=== PATIENT | male | born 1940 | race Caucasian/White ===

== ENCOUNTER 2023-09-25 11:47 | Emergency (ER) | payer OTHER ==
[~2023-09-25] VITALS: Ht 180.3 cm; Wt 67.1 kg
[2023-09-25 11:59] VITALS: BP 184/105; PULSE 73; RESP 16
[2023-09-25] MEDS ORDERED: CLIN-141 PO (14:09)
== END 2023-09-25 14:17 | disposition home or self-care (01) ==
LOC: EDH 11:47
DX: L02.11 Cutaneous abscess of neck (principal); E78.00 Pure hypercholesterolemia, unspecified

== ENCOUNTER 2024-05-24 11:09 | Emergency (ER) | payer OTHER ==
[~2024-05-24] VITALS: Ht 180.3 cm; Wt 64.4 kg
[~2024-05-24 11:09] MED LIST: CLIN-141 PO
--- NOTE | 2024-05-24 11:21 | ERN ---
ED Note History of Present Illness Stated Complaint: REQ CT SCAN Chief Complaint: Headache Time Seen by MD: 11:18 Dictation: PATIENT IS AN 83-YEAR-OLD MALE HERE WITH HIS FROM A LOCAL URGENT CARE WITH COMPLAINTS OF AN INTERMITTENT RIGHT RETRO-ORBITAL AND TEMPORAL HEADACHE HE HAS HAD OFF AND ON FOR 10 DAYS. NO FEVER NO CHILLS, NIH IS 0. HE HAS ALREADY BEEN SEEN TWICE AT TWO URGENT CARES THE 1ST TIME WAS TREATED WITH A TRIPTAN STATES IT DOES HELP WITH THE PAIN DOES NOT RELIEVE IT. THIS MORNING, HE RECEIVED TORADOL 60 AND DECADRON 10 IM AND THEN WAS REFERRED TO THE EMERGENCY ROOM FOR FURTHER EVALUATION AND TREATMENT TO INCLUDE A CT SCAN. HE HAS NO SINUS TENDERNESS IN THE TRIAGE ROOM, NO COMPLAINTS OF VISION CHANGES. Allergies: Coded Allergies: No Known Allergies (Unverified Allergy, Unknown, 09/25/23) Home Meds Active Scripts Butalb/Acetaminophen/Caffeine (Esgic 50-325-40 mg Tablet) 50 Mg-325 Mg-40 Mg Tablet, 2 TAB PO Q4H for TAKE, #30 TAB 0 Refills TWO TABLETS BY MOUTH Q.4 HOURS P.R.N. HEADACHE, MAXIMUM SIX TABLETS IN 24 HOURS Prov:PARKER YOUNG NP 05/24/24 Clindamycin HCl (Clindamycin HCl) 300 Mg Capsule, 300 MG PO QID for 5 Days, #20 CAP Prov:GENA BARDALES MD 09/25/23 Past Medical History Past Medical History: High Cholesterol, Sinusitis Surgical History: None RN Note Reviewed/Agreed w/PFSH: Yes Review of System Dictation CONSTITUTIONAL: NEGATIVE EXCEPT FOR HPI HEAD/FACE: NEGATIVE EXCEPT FOR HPI EENT: NEGATIVE EXCEPT FOR HPI RESPIRATORY: NEGATIVE EXCEPT FOR HPI GASTROINTESTINAL/ABDOMINAL: NEGATIVE EXCEPT FOR HPI GENITOURINARY: NEGATIVE EXCEPT FOR HPI MUSCULOSKELETAL: NEGATIVE EXCEPT FOR HPI INTEGUMENTARY: NEGATIVE EXCEPT FOR HPI NEUROLOGICAL/PSYCH: NEGATIVE EXCEPT FOR HPI HEADACHE HEMATOLOGIC/LYMPHATIC: NEGATIVE EXCEPT FOR HPI ALL SYSTEMS NEGATIVE, EXCEPT NOTED ABOVE. 13 POINT REVIEW OF SYSTEMS ASSESSED AND ALL NEGATIVE EXCEPT FOR ABOVE. Initial Vital Sign VS Vital Signs Date Time Temp Pulse Resp B/P (MAP) Pulse Ox O2 Delivery O2 Flow Rate FiO2 05/24/24 11:14 97.9 71 16 158/91 97 Room Air 0 05/24/24 11:19 21 Physical Exam Dictation VITAL SIGNS REVIEWED GENERAL APPEARANCE: ALERT, ORIENTED X 3, MILD ACUTE DISTRESS, WELL DEVELOPED, NOURISHED. HEAD AND FACE: NON-TRAUMATIC. NO SINUS TENDERNESS ON PALPATION EYES: PERRL, PINK CONJUNCTIVAS, EYELID NO TRAUMA, ANTERIOR CHAMBER WITH ARCUS SENILIS. EOMS INTACT EARS: PINNAS INTACT AND NO SIGNS OF TRAUMA OR ERYTHEMA EAR CANALS CLEAR AND NO DISCHARGE TM NO ERYTHEMA NOSE: NO DISCHARGE, NO BLEEDING. OROPHARYNX: MOUTH NORMAL, TONGUE PINK, PHARYNX CLEAR,NO ERYTHEMA, TONSILS NO EXUDATES, NO ABSCESSES NOTED, MUCOUS MEMBRANE MOIST NECK: SUPPLE, NON-TENDER, NO THYROMEGALY, NO MASSES, NO JVD, NO BRUITS BREAST:DEFERRED CHEST:NO TENDERNESS, NO CREPITUS, NO PARADOXICAL MOVEMENT, NO RETRACTIONS LUNGS:CLEAR, WELL-VENTILATED, SYMMETRIC, NO RALES, NO WHEEZING, NO RHONCHI, NO STRIDOR, GOOD BREATH SOUNDS BILATERALLY HEART: REGULAR RATE, REGULAR RHYTHM, NO MURMUR, NO GALLOPS VASCULAR: NO PERIPHERAL EDEMA, ABDOMEN: SOFT, POSITIVE BOWEL SOUNDS, NONDISTENDED, NO GUARDING, NONTENDER, NO REBOUND, NO MASSES NO HEPATOMEGALY, NO SPLENOMEGALY, NO ALCANTARA'S SIGN, NO HERNIAS. RECTAL: DEFERRED GENITAL: DEFERRED NEUROLOGICAL: NORMAL SPEECH, MOTOR FUNCTION INTACT, SENSORY FUNCTION INTACT NIH IS 0 MUSCULOSKELETAL: NECK NONTENDER, FULL RANGE OF MOTION, BACK NONTENDER, FULL RANGE OF MOTION, EXTREMITIES: NONTENDER, FULL RANGE OF MOTION SKIN: COLOR PINK, DRY, NO TURGOR, NO RASH, NO LACERATIONS, NO ABRASIONS, NO CONTUSIONS. LYMPHATIC: DEFERRED Results (Laboratory/Radiology) Laboratory/Radiology REASON: INTERMITTENT RIGHT RETRO-ORBITAL AND TEMPORAL HEADACHE 10 DAYS NEURO INTACT. COMPARISON: None. TECHNIQUE: Images are obtained from vertex to the skull base. The exam was performed without IV contrast. FINDINGS: There is normal appearing brain parenchyma. There are no focal mass lesions. There is is no evidence of intracranial hemorrhage or acute stroke. Ventricles and sulci appear normal. Posterior fossa and brainstem structures are unremarkable. Paranasal sinuses and remaining extracranial soft tissues appear normal as well. IMPRESSION: 1. Normal noncontrast CT brain. Labs Reviewed?: Yes ED Course ED Course Orders Procedure Category Date Status Time Ct Head/Brain W/O CT 05/24/24 Resulted Contrast 11:18 Vital Signs Date Time Temp Pulse Resp B/P (MAP) Pulse Ox O2 Delivery O2 Flow Rate FiO2 05/24/24 13:22 97.9 75 16 147/88 97 Room Air* 0 21 05/24/24 11:19 97.9 71 16 158/91 97 Room Air* 0 21 05/24/24 11:14 97.9 71 16 158/91 97 Room Air 0 THIRTEEN 30, PATIENT REMAINS NEUROLOGICALLY INTACT AND PAIN IS MARKEDLY IMPROVED AFTER TREATMENT AT URGENT CARE. HE WILL BE DISCHARGED HOME ON FIORICET FOR TEN JOSEPH HEADACHE Medical Decision Making [facility] MEDICAL DISCHARGE MAKING BASED ON CT OF THE HEAD FOR A HEADACHE PATIENT HAS HAD FOR [address] NEGATIVE PATIENT DISCHARGED HOME WITH FIORICET FOR TENSION CLUSTER TYPE HEADACHE DX & DISP Disposition: Discharge Departure Impression: Primary Impression: Tension headache Condition: Stable Scripts Butalb/Acetaminophen/Caffeine (Esgic 50-325-40 mg Tablet) 50 Mg-325 Mg-40 Mg Tablet 2 TAB PO Q4H for TAKE, #30 TAB 0 Refills TWO TABLETS BY MOUTH Q.4 HOURS P.R.N. HEADACHE, MAXIMUM SIX TABLETS IN 24 HOURS Prov: PARKER YOUNG NP 05/24/24 Additional Instructions: FOLLOW-UP WITH PRIMARY CARE PROVIDER IN 1 TO 2 DAYS. TAKE MEDICATIONS DIRECTED HERE IN THE EMERGENCY ROOM. OKAY TO CONTINUE HOME MEDICATIONS UNLESS OTHERWISE DISCUSSED DURING YOUR VISIT IN THE EMERGENCY ROOM TODAY. RETURN TO YOUR NEAREST EMERGENCY ROOM IF SYMPTOMS WORSEN OR IF THERE IS NO IMPROVEMENT. CALL 911 IF YOU NEED IMMEDIATE ASSISTANCE. TAKE TYLENOL OR MOTRIN [id number] NEEDED AND IF NO CONTRAINDICATIONS ARE PRESENT. INCREASE ORAL HYDRATION. A WOUND CULTURE OR URINE CULTURE WAS ORDERED HERE IN THE EMERGENCY ROOM DEPARTMENT PLEASE FOLLOW-UP WITH PRIMARY CARE PROVIDER AND ADVISE THEM TO GET REPEAT PORTS FROM OUR FACILITY. IF YOU HAD ANY FLAKITA WRAP/SPLINTS THAT WERE APPLIED HERE, PLEASE DO NOT REMOVE THEM UNTIL YOU SEE YOUR PRIMARY CARE OR SPECIALTY. TAKE MEDICATIONS DIRECTED FOR YOUR HEADACHE, SEE YOUR PRIMARY CARE DOCTOR IN 1-2 DAYS OR SEE ONE OF THE DOCTORS ON THE LIST PROVIDED YOU. Referrals: Devang SUNSHINE II, MD (PCP) Time of Disposition: 13:30 I have reviewed the case, and I agree with, Diagnosis and Plan PARKER YOUNG NP May 24, 2024 11:21 ASCENCION DEWEY DO May 25, 2024 17:16
--- NOTE | 2024-05-24 13:19 | HMCIMG ---
Exam: NONCONTRAST CT BRAIN REASON: INTERMITTENT RIGHT RETRO-ORBITAL AND TEMPORAL HEADACHE 10 DAYS NEURO INTACT. COMPARISON: None. TECHNIQUE: Images are obtained from vertex to the skull base. The exam was performed without IV contrast. FINDINGS: There is normal appearing brain parenchyma. There are no focal mass lesions. There is is no evidence of intracranial hemorrhage or acute stroke. Ventricles and sulci appear normal. Posterior fossa and brainstem structures are unremarkable. Paranasal sinuses and remaining extracranial soft tissues appear normal as well. IMPRESSION: 1. Normal noncontrast CT brain. CT was performed with one or more following dose reduction techniques: automated exposure control, adjustment of the mA and kv according to patient's size, or use of a iterative reconstruction technique.
[2024-05-24 13:22] VITALS: BP 147/88; PULSE 75; RESP 16; TEMP 97.9; O2SAT 97
[2024-05-24] MEDS ORDERED: BUTA-271 PO (13:31)
== END 2024-05-24 14:23 | disposition home or self-care (01) ==
LOC: EDH 11:09
DX: G44.209 Tension-type headache, unspecified, not intractable (principal); E78.00 Pure hypercholesterolemia, unspecified; Z79.899 Other long term (current) drug therapy
CPT/HCPCS: 70450; 99284

== ENCOUNTER → 2024-06-17 | Outpatient (CLI) | payer OTHER ==
[~2024-06-17] MED LIST changes: +BUTA-271 PO
--- NOTE | 2024-06-17 12:10 | HMCIMG ---
Exam: Aorta sonogram Reason: Screening exam, evaluate for abdominal aortic aneurysm. FINDINGS: There is a small distal abdominal aortic aneurysm measuring 3 x 3.2 cm. This appears infrarenal. The aorta appears otherwise unremarkable. Both common iliac arteries have stents in place. IMPRESSION: 1. Small infrarenal abdominal aortic aneurysm, 3.0 x 3.2 cm axial dimension.
== END | disposition home or self-care (01) ==
LOC: RAH 08:51
DX: I71.43 Infrarenal abdominal aortic aneurysm, without rupture (principal); I71.40 Abdominal aortic aneurysm, without rupture, unspecified
CPT/HCPCS: 76775